=== PATIENT | male | born 1930 | race Caucasian/White ===

== ENCOUNTER 2018-10-18 17:42 | Inpatient (IN) | payer OTHER, MEDICAID ==
[2018-10-18 18:17] LABS: ADD MAN DIFF? NO
[2018-10-18 18:19] LABS: WHITE BLOOD COUNT 4.9 10^3/ul (4.8-10.8)
[2018-10-18 18:19] LABS: ABNORMAL IP MESSAGE 1; BASOPHILS % 0.4 % (0.0-2.0); EOSINOPHILS % 0.2 % (0.0-7.0); HEMATOCRIT 37.5 % (42.0-52.0); HEMOGLOBIN 12.4 g/dl (14.0-18.0); LYMPHOCYTES # 0.4 10^3/ul (0.8-2.9); LYMPHOCYTES % 8.7 % (15.0-51.0); MEAN CORPUSCULAR HEMOGLOBIN 29.3 pg (29.0-33.0); MEAN CORPUSCULAR HGB CONC 33.1 g/dl (32.0-37.0); MEAN CORPUSCULAR VOLUME 88.7 fl (82.0-101.0); MEAN PLATELET VOLUME 11.4 fl (7.4-10.4); MONOCYTE # 0.4 10^3/ul (0.3-0.9); MONOCYTES % 8.5 % (0.0-11.0); NEUTROPHILS % 81.8 % (39.0-77.0); PLATELET COUNT 166 10^3/UL (140-415); POSITIVE DIFF @See below; RED BLOOD COUNT 4.23 10^6/ul (4.70-6.10); RED CELL DISTRIBUTION WIDTH 13.1 % (11.5-14.5)
[2018-10-18] MEDS: SOD CHLORIDE 0.9% 2,250 ML IV (18:21)
[2018-10-18 18:37] LABS: ALANINE AMINOTRANSFERASE 23 IU/L (13-69); ALBUMIN 3.8 g/dl (3.3-4.9); ALBUMIN/GLOBULIN RATIO 1.08; ALKALINE PHOSPHATASE 65 IU/L (42-121); ANION GAP 8 (5-13); ASPARTATE AMINO TRANSFERASE 27 IU/L (15-46); BILIRUBIN,INDIRECT 1.1 mg/dl (0-1.1); BILIRUBIN,TOTAL 1.1 mg/dl (0.2-1.3); BLOOD UREA NITROGEN 26 mg/dl (7-20); CALCIUM 9.1 mg/dl (8.4-10.2); CARBON DIOXIDE 23 mmol/L (21-31); CHLORIDE 107 mmol/L (97-110); CREATININE 1.21 mg/dl (0.61-1.24); GLUCOSE 128 mg/dl (70-220); SODIUM 138 mmol/L (135-144); TOTAL PROTEIN 7.3 g/dl (6.1-8.1)
[2018-10-18 18:39] LABS: PROTIME 17.3 Sec (11.9-14.9); PT RATIO 1.4
[2018-10-18 18:40] LABS: PARTIAL THROMBOPLASTIN TIME 39.8 Sec (23.0-35.0)
[2018-10-18 18:48] LABS: TROPONIN-I 0.013 ng/ml (0.000-0.120)
[2018-10-18] MEDS: ACETAMINOPHEN 650 MG SUPP PR (19:41)
[2018-10-18] MEDS: CEFTRIAXONE 1 GM/50 ML (PMX) 50 ML IVPB (19:41)
[2018-10-18] MEDS: AZITHROMYCIN 500MG/NS (PMX) 250 ML IV (20:08)
[2018-10-18] MEDS ORDERED: ONDANSETRON 4 MG INJ IV (21:30)
[2018-10-18] MEDS ORDERED: ACETAMINOPHEN 325 MG TAB PO (21:30)
[2018-10-18 22:38] LABS: LACTIC ACID 0.8 mmol/L (0.5-2.0)
[2018-10-19] MEDS: SOD CHLORIDE 0.9% 1,000 ML IV (00:46)
[2018-10-19] MEDS: ALBUTEROL/IPRATROPIUM (NEB) 3 ML AMP HHN ×4 (02:01→19:20)
[2018-10-19] MEDS: ACETAMINOPHEN 325 MG TAB PO (02:23)
[2018-10-19 05:58] LABS: ADD MAN DIFF? NO
[2018-10-19 06:07] LABS: BASOPHILS % 0.4 % (0.0-2.0); EOSINOPHILS % 0.8 % (0.0-7.0); HEMATOCRIT 35.2 % (42.0-52.0); HEMOGLOBIN 11.6 g/dl (14.0-18.0); LYMPHOCYTES # 2.4 10^3/ul (0.8-2.9); LYMPHOCYTES % 50.8 % (15.0-51.0); MEAN CORPUSCULAR HEMOGLOBIN 29.8 pg (29.0-33.0); MEAN CORPUSCULAR VOLUME 90.5 fl (82.0-101.0); MEAN PLATELET VOLUME 11.2 fl (7.4-10.4); MONOCYTE # 0.6 10^3/ul (0.3-0.9); MONOCYTES % 13.6 % (0.0-11.0); NEUTROPHIL # 1.6 10^3/ul (1.6-7.5); NEUTROPHILS % 34.2 % (39.0-77.0); PLATELET COUNT 146 10^3/UL (140-415); RED BLOOD COUNT 3.89 10^6/ul (4.70-6.10); RED CELL DISTRIBUTION WIDTH 13.4 % (11.5-14.5)
[2018-10-19 06:07] LABS: WHITE BLOOD COUNT 4.7 10^3/ul (4.8-10.8)
[2018-10-19] MEDS: PANTOPRAZOLE (EC) 40 MG TAB PO (06:13)
[2018-10-19 06:35] LABS: ANION GAP 5 (5-13); BLOOD UREA NITROGEN 18 mg/dl (7-20); CALCIUM 8.2 mg/dl (8.4-10.2); CARBON DIOXIDE 25 mmol/L (21-31); CHLORIDE 114 mmol/L (97-110); GLUCOSE 89 mg/dl (70-220); POTASSIUM 3.9 mmol/L (3.5-5.1); SODIUM 144 mmol/L (135-144)
[2018-10-19] MEDS: VITAMIN B COMPLEX/VIT C CAP PO (09:16)
[2018-10-19] MEDS: LISINOPRIL 10 MG TAB PO ×2 (09:16→20:11)
[2018-10-19] MEDS: FERROUS SULFATE (EC) 325 MG TAB PO (09:16)
[2018-10-19] MEDS: AMLODIPINE 10 MG TAB PO (09:17)
[2018-10-19] MEDS: DABIGATRAN 150 MG CAP PO ×2 (09:17→20:11)
[2018-10-19] MEDS: METOPROLOL (XL) 25 MG TAB PO (09:17)
[2018-10-19] MEDS: ASCORBIC ACID 500 MG TAB PO (09:17)
[2018-10-19] MEDS: ASPIRIN 81 MG TAB PO (09:17)
[2018-10-19] MEDS: DIGOXIN 0.125 MG TAB PO (13:16)
[2018-10-19 16:37] LABS: THYROID STIMULATING HORMONE 0.903 MIU/L (0.465-4.680)
[2018-10-19] MEDS: CEFTRIAXONE 1 GM/50 ML (PMX) 50 ML IVPB (17:07)
[2018-10-19] MEDS: AZITHROMYCIN 500 MG in SOD CHLORIDE 0.9% 250 ML IVPB (17:47)
[2018-10-19 18:42] LABS: TROPONIN-I < 0.012 ng/ml (0.000-0.120)
[2018-10-20] MEDS: SOD CHLORIDE 0.9% 1,000 ML IV (01:00)
[2018-10-20 01:24] LABS: TROPONIN-I 0.012 ng/ml (0.000-0.120)
[2018-10-20] MEDS: ALBUTEROL/IPRATROPIUM (NEB) 3 ML AMP HHN ×4 (01:28→21:14)
[2018-10-20] MEDS: PANTOPRAZOLE (EC) 40 MG TAB PO (05:27)
[2018-10-20 07:25] LABS: ADD MAN DIFF? NO
[2018-10-20 07:33] LABS: WHITE BLOOD COUNT 4.5 10^3/ul (4.8-10.8)
[2018-10-20 07:33] LABS: BASOPHILS % 0.4 % (0.0-2.0); EOSINOPHILS # 0.1 10^3/ul (0.0-0.5); EOSINOPHILS % 1.5 % (0.0-7.0); HEMATOCRIT 41.1 % (42.0-52.0); HEMOGLOBIN 13.1 g/dl (14.0-18.0); LYMPHOCYTES # 1.4 10^3/ul (0.8-2.9); LYMPHOCYTES % 31.2 % (15.0-51.0); MEAN CORPUSCULAR HEMOGLOBIN 28.9 pg (29.0-33.0); MEAN CORPUSCULAR HGB CONC 31.9 g/dl (32.0-37.0); MEAN CORPUSCULAR VOLUME 90.7 fl (82.0-101.0); MEAN PLATELET VOLUME 11.3 fl (7.4-10.4); MONOCYTE # 0.4 10^3/ul (0.3-0.9); MONOCYTES % 8.8 % (0.0-11.0); NEUTROPHIL # 2.6 10^3/ul (1.6-7.5); NEUTROPHILS % 57.9 % (39.0-77.0); PLATELET COUNT 151 10^3/UL (140-415); RED BLOOD COUNT 4.53 10^6/ul (4.70-6.10); RED CELL DISTRIBUTION WIDTH 13.5 % (11.5-14.5)
[2018-10-20 07:52] LABS: ANION GAP 9 (5-13); BLOOD UREA NITROGEN 15 mg/dl (7-20); CALCIUM 8.7 mg/dl (8.4-10.2); CARBON DIOXIDE 23 mmol/L (21-31); CHLORIDE 111 mmol/L (97-110); CREATININE 0.77 mg/dl (0.61-1.24); GLUCOSE 93 mg/dl (70-220); SODIUM 143 mmol/L (135-144)
[2018-10-20 07:54] LABS: CHOL/HDL RATIO 3.6 RATIO; HDL CHOLESTEROL 27 mg/dl (31-75); LDL CHOLESTEROL,CALCULATED 56 mg/dl; TRIGLYCERIDES 77 mg/dl (0-149)
[2018-10-20 07:54] LABS: CHOLESTEROL 98 mg/dl (100-200)
[2018-10-20 08:04] LABS: TROPONIN-I 0.013 ng/ml (0.000-0.120)
[2018-10-20 08:48] LABS: PHOSPHORUS 3.6 mg/dl (2.5-4.9)
[2018-10-20 08:48] LABS: MAGNESIUM 2.1 mg/dl (1.7-2.5)
[2018-10-20] MEDS: AZITHROMYCIN 500 MG in SOD CHLORIDE 0.9% 250 ML IVPB (09:18)
[2018-10-20] MEDS: ASCORBIC ACID 500 MG TAB PO (09:19)
[2018-10-20] MEDS: METOPROLOL (XL) 25 MG TAB PO (09:19)
[2018-10-20] MEDS: FERROUS SULFATE (EC) 325 MG TAB PO (09:19)
[2018-10-20] MEDS: ASPIRIN 81 MG TAB PO (09:19)
[2018-10-20] MEDS: DABIGATRAN 150 MG CAP PO ×2 (09:20→20:43)
[2018-10-20] MEDS: LISINOPRIL 10 MG TAB PO ×2 (09:20→20:44)
[2018-10-20] MEDS: AMLODIPINE 10 MG TAB PO (09:20)
[2018-10-20] MEDS: VITAMIN B COMPLEX/VIT C CAP PO (09:20)
[2018-10-20] MEDS: DIGOXIN 0.125 MG TAB PO (12:23)
[2018-10-20] MEDS: CEFTRIAXONE 1 GM/50 ML (PMX) 50 ML IVPB (18:30)
[2018-10-21] MEDS: ALBUTEROL/IPRATROPIUM (NEB) 3 ML AMP HHN ×4 (01:59→19:49)
[2018-10-21] MEDS: PANTOPRAZOLE (EC) 40 MG TAB PO (06:04)
[2018-10-21] MEDS: METOPROLOL (XL) 25 MG TAB PO (08:29)
[2018-10-21] MEDS: LISINOPRIL 10 MG TAB PO (08:29)
[2018-10-21] MEDS: FERROUS SULFATE (EC) 325 MG TAB PO (08:30)
[2018-10-21] MEDS: VITAMIN B COMPLEX/VIT C CAP PO (08:30)
[2018-10-21] MEDS: DABIGATRAN 150 MG CAP PO ×2 (08:30→21:26)
[2018-10-21] MEDS: AMLODIPINE 10 MG TAB PO (08:30)
[2018-10-21] MEDS: ASPIRIN 81 MG TAB PO (08:30)
[2018-10-21] MEDS: ASCORBIC ACID 500 MG TAB PO (08:30)
[2018-10-21] MEDS: AZITHROMYCIN 500 MG in SOD CHLORIDE 0.9% 250 ML IVPB (09:24)
[2018-10-21] MEDS: DIGOXIN 0.125 MG TAB PO (12:16)
[2018-10-21] MEDS: CEFTRIAXONE 1 GM/50 ML (PMX) 50 ML IVPB (18:06)
[2018-10-21] MEDS ORDERED: AZITHROMYCIN 250 MG TAB PO (18:30)
[2018-10-21] MEDS: LISINOPRIL 20 MG TAB PO (21:27)
[2018-10-22] MEDS: ALBUTEROL/IPRATROPIUM (NEB) 3 ML AMP HHN ×3 (01:15→13:50)
[2018-10-22] MEDS: PANTOPRAZOLE (EC) 40 MG TAB PO (06:50)
[2018-10-22] MEDS: LISINOPRIL 20 MG TAB PO (08:54)
[2018-10-22] MEDS: VITAMIN B COMPLEX/VIT C CAP PO (08:54)
[2018-10-22] MEDS: SPIRONOLACTONE 25 MG TAB PO (08:55)
[2018-10-22] MEDS: DABIGATRAN 150 MG CAP PO (08:55)
[2018-10-22] MEDS: FERROUS SULFATE (EC) 325 MG TAB PO (08:55)
[2018-10-22] MEDS: AZITHROMYCIN 250 MG TAB PO (08:55)
[2018-10-22] MEDS: AMLODIPINE 10 MG TAB PO (08:55)
[2018-10-22] MEDS: ASCORBIC ACID 500 MG TAB PO (08:55)
[2018-10-22] MEDS: METOPROLOL (XL) 25 MG TAB PO (08:56)
[2018-10-22] MEDS: FUROSEMIDE 20 MG TAB PO (08:56)
[2018-10-22] MEDS: DIGOXIN 0.125 MG TAB PO (13:31)
[2018-10-22] MEDS: GUAIFENESIN/CODEINE 5ML CUP PO (14:23)
== END 2018-10-22 17:29 | disposition home health service (06) | DRG 871 ==
LOC: E/R 17:42 → PP2 21:22
PROVIDERS: Internal Medicine Nephrology
DX: A41.9 Sepsis, unspecified organism (principal); J18.9 Pneumonia, unspecified organism; D68.59 Other primary thrombophilia; I48.92 Unspecified atrial flutter; I42.9 Cardiomyopathy, unspecified; E78.5 Hyperlipidemia, unspecified; I10 Essential (primary) hypertension; I25.10 Atherosclerotic heart disease of native coronary artery without angina pectoris; D64.9 Anemia, unspecified; I48.91 Unspecified atrial fibrillation; R94.31 Abnormal electrocardiogram [ECG] [EKG]; Z95.0 Presence of cardiac pacemaker; Z79.01 Long term (current) use of anticoagulants; Z91.81 History of falling; Z79.82 Long term (current) use of aspirin
CPT/HCPCS: 36415; 70450; 71045; 80048; 80053; 80061; 82962; 83605; 83735; 84100; 84443; 84484; 85025; 85610; 85730; 87040-91; 87081; 93005; 93306; 94640; 94664; 96374; 96375; 97110; 97116; 97162; 97165; 97530; 97535; 99285-25